=== PATIENT | male | born 1940 | race Caucasian/White ===

== ENCOUNTER 2017-07-07 19:55 | Emergency (ER) | payer MEDICARE, OTHER ==
[~2017-07-07] VITALS: Ht 182.9 cm; Wt 104.3 kg
[~2017-07-07 19:55] MED LIST: ASPI81CH; CHOL10002; COLCRYS0.6 MG PO; HYDCHL25 PO; LEVSOD150 PO; Norco 5-325 Ta1 EACH PO; OMEP20ER PO
[2017-07-07 21:02] LABS: BASOPHILS ABSOLUTE AUTO 0.03 K/mm3 (0.00-0.23); BASOPHILS PERCENT AUTO 1 % (0-2); EOSINOPHILS PERCENT AUTO 8 % (0-6); Hematocrit 36.2 % (37.0-53.0); Hemoglobin 12.3 g/dL (13.5-17.5); IMMATURE GRAN ABSOLUTE AUTO 0.02 K/mm3 (0.00-0.10); IMMATURE GRAN PERCENT AUTO 0 % (0-1); LYMPHOCYTES ABSOLUTE AUTO 0.74 K/mm3 (0.84-5.20); LYMPHOCYTES PERCENT AUTO 15 % (21-46); MONOCYTES ABSOLUTE AUTO 0.65 K/mm3 (0.16-1.47); MONOCYTES PERCENT AUTO 13 % (4-13); Mean Corpuscular HGB 31.5 pg (26.0-34.0); Mean Corpuscular Volume 93 fL (80-100); NEUTROPHILS ABSOLUTE AUTO 3.06 K/mm3 (1.96-9.15); NEUTROPHILS PERCENT AUTO 62 % (41-73); Platelet Count 191 K/mm3 (150-400); RDW Coefficient Variation 12.8 % (11.7-14.2); RDW Standard Deviation 43.7 fL (35.1-46.3)
[2017-07-07 21:10] LABS: Albumin, Blood 3.1 g/dL (3.4-5.0); Albumin/Globulin Ratio 0.8 (0.8-1.8); Bilirubin, Total 0.9 mg/dL (0.1-1.0); Bun/Creatinine Ratio 21.4 (12.0-20.0); Creatinine, Blood 1.54 mg/dL (0.60-1.20); Globulin, Blood 3.9 g/dL (2.2-4.0); Magnesium, Blood 1.7 mg/dL (1.6-2.4); Potassium, Blood 3.6 mmol/L (3.5-5.5)
[2017-07-07 21:13] LABS: Thyroid Stimulating Hormone 1.34 uIU/mL (0.360-4.800)
[2017-07-07] MEDS ORDERED: Norco 5-325 Ta1 EACH PO (23:40)
[2017-07-07] MEDS ORDERED: LIDO700A20 TOP (23:40)
== END 2017-07-08 00:10 | disposition home or self-care (01) ==
LOC: ER 19:55
PROVIDERS: Emergency Medicine
DX: S22.080S Wedge compression fracture of T11-T12 vertebra, sequela (principal); R42 Dizziness and giddiness; Z79.899 Other long term (current) drug therapy; Z79.82 Long term (current) use of aspirin; W18.30XA Fall on same level, unspecified, initial encounter
CPT/HCPCS: 70450; 71046; 72100; 80053; 81000; 83735; 84443; 85025; 93005; 93010; J7030

== ENCOUNTER → 2020-05-26 | Outpatient (CLI) | payer MEDICARE, OTHER ==
[~2020-05-26] MED LIST changes: +Aspir 8181 MG PO; +DULO30 PO; +DULO60 PO; +LIDO700A20 TOP; +VITAMIN D350000 UNIT PO
== END | disposition home or self-care (01) ==
LOC: LAB SHORT 18:59 → LAB 18:59
DX: L21.8 Other seborrheic dermatitis (principal); I89.0 Lymphedema, not elsewhere classified; R21 Rash and other nonspecific skin eruption; L08.9 Local infection of the skin and subcutaneous tissue, unspecified; D48.5 Neoplasm of uncertain behavior of skin
CPT/HCPCS: 87070; 87077; 87147; 87186; 87205

== ENCOUNTER 2020-06-28 19:31 | Emergency (ER) | payer MEDICARE, OTHER ==
[~2020-06-28] VITALS: Ht 180.3 cm; Wt 104.3 kg
== END 2020-06-28 21:32 | disposition home or self-care (01) ==
LOC: ER 19:31
DX: M25.571 Pain in right ankle and joints of right foot (principal); Z79.899 Other long term (current) drug therapy
CPT/HCPCS: 73610; 99284-25; A9270

== ENCOUNTER 2020-08-22 20:36 | Observation (INO) | payer MEDICARE, OTHER ==
[~2020-08-22] VITALS: Ht 182.9 cm; Wt 104.7 kg
[2020-08-22 21:29] LABS: BASOPHILS ABSOLUTE AUTO 0.01 K/mm3 (0.00-0.23); BASOPHILS PERCENT AUTO 0 % (0-2); EOSINOPHILS ABSOLUTE AUTO 0.02 K/mm3 (0.00-0.68); EOSINOPHILS PERCENT AUTO 0 % (0-6); Hematocrit 36.4 % (37.0-53.0); Hemoglobin 12.2 g/dL (13.5-17.5); IMMATURE GRAN ABSOLUTE AUTO 0.03 K/mm3 (0.00-0.10); IMMATURE GRAN PERCENT AUTO 0 % (0-1); LYMPHOCYTES ABSOLUTE AUTO 0.88 K/mm3 (0.84-5.20); LYMPHOCYTES PERCENT AUTO 10 % (21-46); MONOCYTES ABSOLUTE AUTO 0.79 K/mm3 (0.16-1.47); MONOCYTES PERCENT AUTO 9 % (4-13); Mean Corpuscular HGB 30.7 pg (26.0-34.0); Mean Corpuscular HGB Conc 33.5 g/dL (31.5-36.5); Mean Corpuscular Volume 92 fL (80-100); Mean Platelet Volume 8.7 fL (9.1-12.4); NEUTROPHILS ABSOLUTE AUTO 7.34 K/mm3 (1.96-9.15); NEUTROPHILS PERCENT AUTO 81 % (41-73); Platelet Count 289 K/mm3 (150-400); RDW Coefficient Variation 13.2 % (11.7-14.2); Red Blood Cell Count 3.98 M/mm3 (4.30-5.90); White Blood Cell Count 9.07 K/mm3 (4.00-11.30)
[2020-08-22 21:56] LABS: Alanine Aminotransfer (ALT/SGP 23 U/L (12-78); Albumin, Blood 3.1 g/dL (3.4-5.0); Albumin/Globulin Ratio 0.7 (0.8-1.8); Alk Phos 71 U/L (50-136); Anion Gap 6 mmol/L (6-16); Aspartate Aminotrans (AST/SGOT 14 U/L (12-37); Bilirubin, Total 0.9 mg/dL (0.1-1.0); Blood Urea Nitrogen 35 mg/dL (8-24); CO2, Blood 28 mmol/L (21-32); Calcium, Blood 9.4 mg/dL (8.5-10.1); Chloride, Blood 102 mmol/L (98-108); Creatinine, Blood 1.25 mg/dL (0.60-1.20); Globulin, Blood 4.3 g/dL (2.2-4.0); Glomerular Filtration Rate 59 (60-); Glucose, Blood 116 mg/dL (70-99); Potassium, Blood 4.3 mmol/L (3.5-5.5); Sodium, Blood 136 mmol/L (136-145); Total Protein, Blood 7.4 g/dL (6.4-8.2); Troponin I <0.015 ng/mL (0.000-0.040)
[2020-08-22 23:57] LABS: Source, Urine Clean Catch
[2020-08-23 00:04] LABS: Appearance, Urine Clear (Clear); Bilirubin, Urine Neg (Neg); Blood, Urine 2+ (Neg); Color, Urine Yellow (P-Yellow); Glucose Qualitative, Urine Neg (Neg); Ketones, Urine Neg (Neg); Leukocyte Esterase, Urine Neg (Neg); Nitrite, Urine Neg (Neg); Protein, Urine Neg (Neg); Urobilinogen, Urine NORM (Normal)
[2020-08-23 00:09] LABS: Bacteria Few /hpf; Red Blood Cells, Urine 0-2 /hpf (0-2); Squamous Epithelial Cells Few /hpf (Few); White Blood Cells, Urine 0-2 /hpf (0-5)
--- NOTE | 2020-08-23 00:45 | NUR ---
ADMISSION: PATIENT IS RECIEVED VIA STRETCHER FROM ER. REPORTING PAIN IS R LEG ONLY WITH MOVEMENT. PATIENT AND ARE ORIENTED TO ROOM AND CALL MARTIN. ZOSYN IS INFUSING.
[2020-08-23 01:10] LABS: SARS-Cov-2 (COVID-19) PCR, MMC NEGATIVE (NEGATIVE)
[2020-08-23 05:44] LABS: BASOPHILS ABSOLUTE AUTO 0.02 K/mm3 (0.00-0.23); BASOPHILS PERCENT AUTO 0 % (0-2); EOSINOPHILS ABSOLUTE AUTO 0.02 K/mm3 (0.00-0.68); EOSINOPHILS PERCENT AUTO 0 % (0-6); Hematocrit 35.4 % (37.0-53.0); IMMATURE GRAN ABSOLUTE AUTO 0.04 K/mm3 (0.00-0.10); IMMATURE GRAN PERCENT AUTO 1 % (0-1); LYMPHOCYTES ABSOLUTE AUTO 1.09 K/mm3 (0.84-5.20); LYMPHOCYTES PERCENT AUTO 13 % (21-46); MONOCYTES ABSOLUTE AUTO 0.91 K/mm3 (0.16-1.47); MONOCYTES PERCENT AUTO 11 % (4-13); Mean Corpuscular HGB Conc 33.9 g/dL (31.5-36.5); Mean Corpuscular Volume 92 fL (80-100); NEUTROPHILS ABSOLUTE AUTO 6.05 K/mm3 (1.96-9.15); NEUTROPHILS PERCENT AUTO 75 % (41-73); Platelet Count 265 K/mm3 (150-400); RDW Coefficient Variation 13.2 % (11.7-14.2); RDW Standard Deviation 43.9 fL (35.1-46.3); Red Blood Cell Count 3.87 M/mm3 (4.30-5.90); White Blood Cell Count 8.13 K/mm3 (4.00-11.30)
[2020-08-23 06:10] LABS: Albumin, Blood 2.9 g/dL (3.4-5.0); Albumin/Globulin Ratio 0.7 (0.8-1.8); Bilirubin, Total 1.1 mg/dL (0.1-1.0); Bun/Creatinine Ratio 24.1 (12.0-20.0); Calcium, Blood 9.2 mg/dL (8.5-10.1); Creatinine, Blood 1.37 mg/dL (0.60-1.20); Globulin, Blood 4.2 g/dL (2.2-4.0); Potassium, Blood 3.7 mmol/L (3.5-5.5); Total Protein, Blood 7.1 g/dL (6.4-8.2)
[2020-08-23 06:15] LABS: Thyroid Stimulating Hormone 7.15 uIU/mL (0.360-4.800)
--- NOTE | 2020-08-23 06:23 | NUR ---
SHIFT ASSESSMENT: PATIENT IS A&OX4, BED BOUND AT HOME FOR MORE TTHAN 2 WEEKS. PATIENT IS UNABLE TO GET IN OR OUT OF HIS HOME FOR ANY REASON INCLUDING MEDICAL APPOINTMENTS PER PATIENT AND . HE HAS BE NON COMPLIANT WITH HYDROCLOROTHIAZIDE AT HOME. GENERALIZED EDEMA IS PLUS 4 WITH LEFT ARM BEING THE LARGEST EXTREMITY. PATIENT HAS ONLY GROSS MOTOR FUNCTION OF LEFT HAND. IS ABLE TO FEED SELF WITH SET UP. VSS. BUMEX WAS GIVEN IN ER AND PATIENT HAS VOIDED 2650 [address] SINCE ARRIVING ON UNIT. URINE IS PALE.
--- NOTE | 2020-08-23 19:12 | NUR ---
SHIFT SUMMARY ASA DENIED PAIN WHEN LYING DOWN THIS SHIFT. GOT UP WITH MOD/MAX ASSIST TO STAND WITH PT (SEE NOTE). CONTINENT IN URINAL. COUGHING UP WHITE PHLEGM, DR RANKIN AWARE, CXR DONE. COMPLAINED OF RLE PAIN, HAD FEMUR XR SHOWING POSSIBLE OSTEONECROSIS. PER DR RANKIN, PT OK FOR NO PIV. VISITED. HAD U/S BLE. FULLY ORIENTED AND COOPERATIVE. SKIN INTACT. CALL LIGHT IN REACH, WCTM
--- NOTE | 2020-08-24 05:06 | NUR ---
SHIFT SUMMARY: PATIENT REQUESTED TYRING TO USE THE BSC FOR BM. A HEAVY ASSIST OF TWO TO STAND AND PIVOT. UNABLE TO GO ON BSC BUT WAS INC. OF A SMALL BM IN THE BED BEFOR TRANSFER. VSS, NO RESPIRATORY DISTRESS. VOIDING LARGE AMOUNTS OF PALE YELLOW URINE. PRN NASAL SPRAY WAS GIVEN FOR NASAL CONGESTION.
--- NOTE | 2020-08-24 17:54 | NUR ---
SHIFT SUMMARY PT AxOx4 WITH OCCASIONAL CONFUSION. PT CALLING OUT FREQUENTLY THIS AM, IMPROVEMENT IN USING CALL LIGHT BY AFTERNOON. PT IN ROOM FOR VISIT TODAY, AND UPDATED ON PLAN OF CARE. PT/OT WORKED WITH THE PATIENT. PT IS DECONDITIONED AND PLAN IS TO GO TO SNF FOR REHAB UPON DC. PT REPORTED PAIN IN LEG. MEDICATED PER EMAR. ALSO STARTED ON BOWEL CARE AFTER PT REPORTED NO BM x4 DAYS. PT CURRENTLY RESTING IN BED WITH CALL LIGHT IN REACH. DENIES ANY NEEDS AT THIS TIME.
[2020-08-25 05:34] LABS: BASOPHILS ABSOLUTE AUTO 0.02 K/mm3 (0.00-0.23); BASOPHILS PERCENT AUTO 0 % (0-2); EOSINOPHILS ABSOLUTE AUTO 0.16 K/mm3 (0.00-0.68); EOSINOPHILS PERCENT AUTO 3 % (0-6); Hematocrit 35.2 % (37.0-53.0); Hemoglobin 11.8 g/dL (13.5-17.5); IMMATURE GRAN ABSOLUTE AUTO 0.02 K/mm3 (0.00-0.10); IMMATURE GRAN PERCENT AUTO 0 % (0-1); LYMPHOCYTES ABSOLUTE AUTO 1.28 K/mm3 (0.84-5.20); LYMPHOCYTES PERCENT AUTO 23 % (21-46); MONOCYTES ABSOLUTE AUTO 0.58 K/mm3 (0.16-1.47); MONOCYTES PERCENT AUTO 10 % (4-13); Mean Corpuscular HGB 30.8 pg (26.0-34.0); Mean Corpuscular HGB Conc 33.5 g/dL (31.5-36.5); Mean Corpuscular Volume 92 fL (80-100); Mean Platelet Volume 8.8 fL (9.1-12.4); NEUTROPHILS ABSOLUTE AUTO 3.56 K/mm3 (1.96-9.15); NEUTROPHILS PERCENT AUTO 63 % (41-73); Platelet Count 271 K/mm3 (150-400); RDW Coefficient Variation 13.2 % (11.7-14.2); RDW Standard Deviation 44.7 fL (35.1-46.3); Red Blood Cell Count 3.83 M/mm3 (4.30-5.90); White Blood Cell Count 5.62 K/mm3 (4.00-11.30)
[2020-08-25 05:57] LABS: Albumin, Blood 2.7 g/dL (3.4-5.0); Anion Gap 4 mmol/L (6-16); Blood Urea Nitrogen 32 mg/dL (8-24); Bun/Creatinine Ratio 23.7 (12.0-20.0); CO2, Blood 31 mmol/L (21-32); Calcium, Blood 9.2 mg/dL (8.5-10.1); Chloride, Blood 99 mmol/L (98-108); Creatinine, Blood 1.35 mg/dL (0.60-1.20); Glomerular Filtration Rate 54 (60-); Glucose, Blood 107 mg/dL (70-99); Magnesium, Blood 1.8 mg/dL (1.6-2.4); Phosphorus, Blood 3.3 mg/dL (2.5-4.9); Potassium, Blood 3.7 mmol/L (3.5-5.5); Sodium, Blood 134 mmol/L (136-145)
--- NOTE | 2020-08-25 16:19 | NUR ---
SHIFT SUMMARY PT WORKED WITH PHYSICAL & OCCUPATIONAL THERAPY TODAY. PT WAS GIVEN BOWEL CARE AND PRUNE JUICE TO HELP WITH COSTIPATION. LARGE BM TODAY A RESULT. THERAPY RECCOMENDING [facility] ON DISCHARGE. THIS RN ENCOURAGED PT ABOUT THIS OPTION. PT STATES HE IS "THINKING ABOUT IT". PT REFUSED LOVENOX INJECTION AFTER BEING EDUCATED ON IT. NO OTHER ACUTE CHANGES IN ASSESSMENT AT THIS TIME. VS REVIEWED. PT BEING HELPED WITH A BEDBATH BY THE AIDE. CALL LIGHT IN REACH.
--- NOTE | 2020-08-25 23:28 | NUR ---
AWAKE AT SHIFT CHANGE, DENIED PAIN. ALERT TO QUESTIONS ASKED. ORAL ANTIBIOTIC GIVEN. CALL LIGHT IN REACH
--- NOTE | 2020-08-26 05:24 | NUR ---
WIRELESS SALES MANAGER SUMMARY HAS BEEN RESTING QUIETLY WITH EFW INTERRUPTIONS THIS SHIFT. TOLERATING MEDS WELL. INCONT/CONT UES URINAL. NO C/O VOICED. CALL LIGHT IN REACH
--- NOTE | 2020-08-26 17:37 | NUR ---
SHIFT SUMMARY PT ALERT AND ORIENTED. PT WORKED WITH PT/OT AND REHAB IS STILL THE PLAN. DENIES PAIN, SOB OR DISCOMFORT. BED IS IN THE LOWEST POSITION AND CALL LIGHT WITHIN REACH
--- NOTE | 2020-08-26 22:38 | NUR ---
ASSUMED CARE. AOX3, USES CALL LIGHT APPROPRIATLY. DENIES ANY DISCOMFORT. LUNG SOUNDS ARE CLEAR DIMINISHED IN BASES. HR NORMAL S1 S2 SOUNDS. LYMPHEDEMA TO RUE. BILATERAL LOWER EDEMA +1 RIGHT GREATER THAN LEFT. 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 URINATING 100ML AT A TIME WITH URINAL. WOUND IN LEFT ARMPIT, SLOUGH NOTED, SCANT DRAINAGE. DENIES PAIN. WOUND CULTURE PENDING. OPEN TO AIR. MEDS GIVEN. DENIES ANY OTHER NEEDS AT THIS TIME. CALL LIGHT IS IN REACH.
--- NOTE | 2020-08-27 05:12 | NUR ---
SHIFT SUMMARY: AOX3, WC BOUND, ABLE TO MOVE A LITTLE IN BED. ENCOURAGED REPOSITIONING, LIKES TO STAY IN SITTING POSITION DOES NOT LIKE TO LAY BACK IN BED. KEEPS HEAD COVERED WITH BLANKET MOST OF THE TIME. DENIES ANY PAIN OR DISCOMFORT. LUE LYMPHEDMEA, TALKED HIM INTO HAVING IT UP ON A PILLOW. DECREASE IN HAND MOBILITY AND LUE MOBILITY. BILATERL LE EDEMA. RLE CELLULITIS IMPROVING, DOES GET PAIN OCCATIONALLY IN THAT LEG. SLIGHT WARMTH TO TOUCH. VS WITH MILD TACHYCARDIA IN 110'S THEN BACK TO NORMAL. BP WNL. URINATES SMALL AMOUNTS FREQUENTLY 100ML AT A TIME, CLEAR YELLOW URINE. NO BM TONIGHT. WILL CONTINUE TO MONITOR. CALL LIGHT IS IN REACH.
--- NOTE | 2020-08-27 17:46 | NUR ---
SHIFT SUMMARY PT ALERT AND INTERMITTENT CONFUSION; DENIES PAIN AND 2 MAX ASSIST. PT ON RA AND NO TELE. PT VSS. DENIES ANY CP OR DISCOMFORT. AWAITS SNF. BED ALARM IS ON AND CALL LIGHT WITHIN REACH
--- NOTE | 2020-08-27 22:02 | NUR ---
ASSUMED CARE. AOX3, NO CHANGES FROM YESTERDAY. STILL SITTING IN BED WITH COVERS OVER HIS HEAD. DENIES ANY PAIN OR DISCOMFORT, BUT WOULD LIKE A PAIN PILL FOR BEDTIME TO HELP WITH SLEEP. NO CHANGED TO LUE. DECREASE IN REDNESS TO LLE, PINK, NORMAL TEMP. WORKED WITH PT/OT TODAY. VS WNL, AFEBRILE. MEDS GIVEN. WILL CONTINUE TO MONITOR AND TREAT. CALL LIGHT IS IN REACH.
[2020-08-28 05:02] LABS: Hemoglobin 10.9 g/dL (13.5-17.5); Mean Corpuscular HGB 30.4 pg (26.0-34.0); Mean Corpuscular Volume 92 fL (80-100); Mean Platelet Volume 8.7 fL (9.1-12.4); Platelet Count 245 K/mm3 (150-400); Red Blood Cell Count 3.59 M/mm3 (4.30-5.90)
--- NOTE | 2020-08-28 05:22 | NUR ---
SHIFT SUMMARY; NO ACUTE CHANGES OR CONCERNS. RLE PAIN MINIMAL, NORMAL SKIN TEMP, PINK BUT IMPROVING. REFUSES TO MOVE POSITIONES ALL NIGHT, WILL NOT LAY DOWN LIKES TO BE IN SITTING POSITION. DISCUSSED RISK OF SKIN BREAKDOWN, RESPONSE WAS "I WON'T GET SKIN BREAKDOWN". VS WNL, AFEBRILE. NO GROWTH ON WOUND CULTURE. WOUND OPEN WITH YELLOW SLOUGH TO WOUND BED. NO PAIN. USES CALL LIGHT APPROPRIATLY.
[2020-08-28 05:53] LABS: Bun/Creatinine Ratio 25.4 (12.0-20.0); Calcium, Blood 9.1 mg/dL (8.5-10.1); Creatinine, Blood 1.42 mg/dL (0.60-1.20); Potassium, Blood 3.9 mmol/L (3.5-5.5)
[2020-08-28 12:25] LABS: SARS-Cov-2 (COVID-19) PCR, MMC NEGATIVE (NEGATIVE)
--- NOTE | 2020-08-28 15:51 | NUR ---
DISCHARGE NOTE PATIENT DISCHARGED TO [facility]. PATIENT ALERT AND ORIENTED THIS SHIFT. PATIENT WORKED WITH PT/OT PRIOR TO DISCHARGE. PATIENT'S SPOUSE IN THE ROOM PRIOR TO DISCHARGE. PATIENT TRANSPORTED BY [facility]. PATIENT BELONGINGS WITH PATIENT UPON DISCHARGE.
== END 2020-08-28 15:40 ==
LOC: ER 20:36 → MEDS 20:37
PROVIDERS: Emergency Medicine; Internal Medicine; ADMIT Internal Medicine
DX: M16.11 Unilateral primary osteoarthritis, right hip (principal); M87.9 Osteonecrosis, unspecified; J18.9 Pneumonia, unspecified organism; I89.0 Lymphedema, not elsewhere classified; E03.9 Hypothyroidism, unspecified; I12.9 Hypertensive chronic kidney disease with stage 1 through stage 4 chronic kidney disease, or unspecified chronic kidney disease; N18.30 Chronic kidney disease, stage 3 unspecified; E87.1 Hypo-osmolality and hyponatremia; L89.151 Pressure ulcer of sacral region, stage 1; R62.7 Adult failure to thrive; E86.0 Dehydration; J32.9 Chronic sinusitis, unspecified; K21.9 Gastro-esophageal reflux disease without esophagitis; L02.411 Cutaneous abscess of right axilla; Z85.71 Personal history of Hodgkin lymphoma; Z20.822 Contact with and (suspected) exposure to COVID-19; Z92.3 Personal history of irradiation; Z79.01 Long term (current) use of anticoagulants; Z74.09 Other reduced mobility; Z91.81 History of falling; Z68.31 Body mass index [BMI] 31.0-31.9, adult
CPT/HCPCS: 36415; 71045; 73552; 80048; 80053; 80069; 81001; 83605; 83735; 83880; 84145; 84439; 84443; 84484; 85025; 85027; 87040; 87070; 87205; 93005; 93010; 93970; 96365; 96372; 97110; 97110-CO; 97116; 97161; 97164; 97166; 97530; 97530-CO; 97535; 97535-CO; 99285-25; A9270; G0378; J1650; J2543; J7030; U0004

== ENCOUNTER 2020-10-09 19:08 | Observation (INO) | payer MEDICARE, OTHER ==
[~2020-10-09] VITALS: Ht 182.9 cm; Wt 106.3 kg
[2020-10-09 19:40] LABS: BASOPHILS ABSOLUTE AUTO 0.02 K/mm3 (0.00-0.23); BASOPHILS PERCENT AUTO 0 % (0-2); EOSINOPHILS ABSOLUTE AUTO 0.11 K/mm3 (0.00-0.68); EOSINOPHILS PERCENT AUTO 1 % (0-6); Hematocrit 34.9 % (37.0-53.0); Hemoglobin 11.6 g/dL (13.5-17.5); IMMATURE GRAN ABSOLUTE AUTO 0.04 K/mm3 (0.00-0.10); IMMATURE GRAN PERCENT AUTO 0 % (0-1); LYMPHOCYTES ABSOLUTE AUTO 0.97 K/mm3 (0.84-5.20); LYMPHOCYTES PERCENT AUTO 11 % (21-46); MONOCYTES ABSOLUTE AUTO 0.71 K/mm3 (0.16-1.47); MONOCYTES PERCENT AUTO 8 % (4-13); Mean Corpuscular HGB 29.7 pg (26.0-34.0); Mean Corpuscular HGB Conc 33.2 g/dL (31.5-36.5); Mean Corpuscular Volume 90 fL (80-100); Mean Platelet Volume 8.2 fL (9.1-12.4); NEUTROPHILS ABSOLUTE AUTO 7.08 K/mm3 (1.96-9.15); NEUTROPHILS PERCENT AUTO 79 % (41-73); Platelet Count 288 K/mm3 (150-400); RDW Coefficient Variation 13.1 % (11.7-14.2); RDW Standard Deviation 42.7 fL (35.1-46.3); White Blood Cell Count 8.93 K/mm3 (4.00-11.30)
[2020-10-09 19:47] LABS: Source, Urine Clean Catch
[2020-10-09 19:53] LABS: Appearance, Urine Clear (Clear); Bilirubin, Urine Neg (Neg); Blood, Urine 2+ (Neg); Color, Urine Yellow (P-Yellow); Glucose Qualitative, Urine Neg (Neg); Ketones, Urine Neg (Neg); Leukocyte Esterase, Urine Neg (Neg); Nitrite, Urine Neg (Neg); Protein, Urine Neg (Neg); Specific Gravity, Urine 1.015 (1.003-1.022); Urobilinogen, Urine NORM (Normal)
[2020-10-09 19:58] LABS: Alanine Aminotransfer (ALT/SGP 24 U/L (12-78); Albumin, Blood 2.8 g/dL (3.4-5.0); Albumin/Globulin Ratio 0.6 (0.8-1.8); Alk Phos 83 U/L (50-136); Anion Gap 4 mmol/L (6-16); Aspartate Aminotrans (AST/SGOT 22 U/L (12-37); Bilirubin, Total 0.7 mg/dL (0.1-1.0); Blood Urea Nitrogen 25 mg/dL (8-24); Bun/Creatinine Ratio 22.9 (12.0-20.0); CO2, Blood 29 mmol/L (21-32); Calcium, Blood 9.3 mg/dL (8.5-10.1); Chloride, Blood 103 mmol/L (98-108); Creatinine, Blood 1.09 mg/dL (0.60-1.20); Globulin, Blood 4.4 g/dL (2.2-4.0); Glomerular Filtration Rate >60 (60-); Glucose, Blood 105 mg/dL (70-99); Potassium, Blood 4.4 mmol/L (3.5-5.5); Sodium, Blood 136 mmol/L (136-145); Total Protein, Blood 7.2 g/dL (6.4-8.2)
[2020-10-09 20:01] LABS: Bacteria Few /hpf; Squamous Epithelial Cells Not Seen /hpf (Few); White Blood Cells, Urine Rare /hpf (0-5)
--- NOTE | 2020-10-10 18:37 | NUR ---
PT ARRIVED TO ROOM VIA GURNEY, UNABLE TO STAND, SLIDER SHEET USED TO TRANSFER PT TO BED, VITAL SIGNS AND WEIGHT OBTAINED, BED IN LOWEST POSITION AND CALL MARTIN IN REACH, WILL CONTINUE TO MONITOR AND REPORT TO ONCOMING RN
--- NOTE | 2020-10-11 04:21 | NUR ---
SHIFT SUMMARY: PT STATES HE HAD A TWO BOWEL MOVEMENTS YESTERDAY AND DID NOT NEED ANY BOWEL CARE. RESTED WELL DURING SHIFT. ON RA. 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 DECLINED ELEVATING AFFECTED ARM ON PILLOW, STATES HE DOES THIS AT HOME. PT WILL BE EVALUATED BY PT FOR PLACEMENT. PLANS TO D/C TO [facility] MONDAY. NO ACUTE CHANGES. WILL CONTINUE TO PROVIDE CARE UNTIL SHIFT REPORT.
--- NOTE | 2020-10-11 18:30 | NUR ---
NO ACUTE CHANGES THIS SHIFT, WILL CONTINUE TO MONITOR AND REPORT TO ONCOMING RN
--- NOTE | 2020-10-11 19:26 | NUR ---
RECEIVED REPORT FROM GABRIEL DE LA VEGA. PT LYING IN BED WITH EYES CLOSED, EASILY AWAKENS. RESP E/U ON RA. DOES NOT REMEMBER ME HIS NURSE FROM THE NIGHT BEFORE. WILL PROVIDE CARE T/O SHIFT. CALL LT IN REACH.
--- NOTE | 2020-10-12 04:41 | NUR ---
SHIFT SUMMARY: NO ACUTE CHANGES. PT RESTED WELL T/O SHIFT. ON RA. NO COMPLAINTS. FORGETFUL AT TIMES. NO CHANGE TO BUE CHRONIC LYMPHEDEMA. ELEVATED RIGHT LEG ON PILLOW FOR COMFORT. USES URINAL AT BEDSIDE. PLAN IS TO DISCHARGE TO SNF POSSIBLY TODAY. WILL CONTINUE TO PROVIDE CARE UNTIL SHIFT REPORT.
[2020-10-12 12:07] LABS: SARS-Cov-2 (COVID-19) PCR, MMC NEGATIVE (NEGATIVE)
== END 2020-10-12 14:27 ==
LOC: ER 19:08 → ERHOLD 19:09 → ER 10-10 16:11 → ERHOLD 10-10 16:12 → ER 10-10 16:12 → MEDS 10-10 16:12 → ERHOLD 10-10 17:30 → MEDS 10-10 18:29 → ERHOLD 10-10 18:29 → ENPENDDIS 10-12 12:19 → MEDS 10-12 14:27
PROVIDERS: Emergency Medicine; Internal Medicine; ADMIT Internal Medicine
DX: R53.81 Other malaise (principal); Z74.01 Bed confinement status; K59.00 Constipation, unspecified; E03.9 Hypothyroidism, unspecified; I10 Essential (primary) hypertension; Z85.71 Personal history of Hodgkin lymphoma; K21.9 Gastro-esophageal reflux disease without esophagitis; Z51.5 Encounter for palliative care; Z20.822 Contact with and (suspected) exposure to COVID-19
CPT/HCPCS: 36415; 74022; 80053; 81001; 83605; 85025; 87040; 93005; 93010; 97110; 97162; 97530; 99285-25; A9270; G0378; J1650; U0004

== ENCOUNTER → 2021-03-02 | Outpatient (CLI) | payer MEDICARE, OTHER ==
[2021-03-02 08:06] LABS: BASOPHILS ABSOLUTE AUTO 0.02 K/mm3 (0.00-0.23); BASOPHILS PERCENT AUTO 0 % (0-2); EOSINOPHILS ABSOLUTE AUTO 0.19 K/mm3 (0.00-0.68); EOSINOPHILS PERCENT AUTO 3 % (0-6); Hemoglobin 11.8 g/dL (13.5-17.5); IMMATURE GRAN ABSOLUTE AUTO 0.02 K/mm3 (0.00-0.10); IMMATURE GRAN PERCENT AUTO 0 % (0-1); LYMPHOCYTES ABSOLUTE AUTO 1.72 K/mm3 (0.84-5.20); LYMPHOCYTES PERCENT AUTO 24 % (21-46); MONOCYTES ABSOLUTE AUTO 0.58 K/mm3 (0.16-1.47); MONOCYTES PERCENT AUTO 8 % (4-13); Mean Corpuscular HGB 28.2 pg (26.0-34.0); Mean Corpuscular HGB Conc 32.8 g/dL (31.5-36.5); Mean Corpuscular Volume 86 fL (80-100); Mean Platelet Volume 8.3 fL (9.1-12.4); NEUTROPHILS ABSOLUTE AUTO 4.73 K/mm3 (1.96-9.15); NEUTROPHILS PERCENT AUTO 65 % (41-73); Platelet Count 274 K/mm3 (150-400); RDW Coefficient Variation 14.7 % (11.7-14.2); RDW Standard Deviation 45.7 fL (35.1-46.3); Red Blood Cell Count 4.18 M/mm3 (4.30-5.90); White Blood Cell Count 7.26 K/mm3 (4.00-11.30)
== END | disposition home or self-care (01) ==
LOC: LAB RH 07:59 → EDSTATUS 14:28
PROVIDERS: Internal Medicine
DX: I89.0 Lymphedema, not elsewhere classified (principal); M62.81 Muscle weakness (generalized); L03.90 Cellulitis, unspecified; Z85.71 Personal history of Hodgkin lymphoma
CPT/HCPCS: 84145; 85025

== ENCOUNTER → 2021-06-29 | Outpatient (CLI) | payer MEDICARE, OTHER ==
[~2021-06-29] MED LIST changes: +FUROSEMIDE40 MG PO; +Ketoconazole15 GM TOP; +Potassium Chlo20 ME1 PO; +SULFAMETHOXAZO1 EAC1 PO; +Synthroid/Levo0.2 MG; +TRIDERM28.4 GM TOP; +[UNRECOGNIZED DRUG - CODE] PO
[2021-06-29 19:28] LABS: Appearance, Urine Clear (Clear); Bilirubin, Urine Neg (Neg); Blood, Urine 2+ (Neg); Glucose Qualitative, Urine Neg (Neg); Ketones, Urine Neg (Neg); Leukocyte Esterase, Urine Neg (Neg); Nitrite, Urine Neg (Neg); Protein, Urine Neg (Neg); Urobilinogen, Urine NORM (Normal)
[2021-06-29 19:53] LABS: Color, Urine Pale Yellow (P-Yellow)
[2021-06-29 19:54] LABS: Bacteria Few /hpf; Red Blood Cells, Urine 0-2 /hpf (0-2); Squamous Epithelial Cells Rare /hpf (Few); White Blood Cells, Urine 0-2 /hpf (0-5)
== END ==
LOC: EDSTATUS 11:40 → LAB RH 17:26
PROVIDERS: Internal Medicine
DX: N39.0 Urinary tract infection, site not specified (principal)
CPT/HCPCS: 81001

== ENCOUNTER → 2021-11-03 | Outpatient (CLI) | payer MEDICARE, OTHER ==
[~2021-11-03] MED LIST changes: -FUROSEMIDE40 MG PO; -Ketoconazole15 GM TOP; -Potassium Chlo20 ME1 PO; -SULFAMETHOXAZO1 EAC1 PO; -Synthroid/Levo0.2 MG; -TRIDERM28.4 GM TOP; -[UNRECOGNIZED DRUG - CODE] PO
== END | disposition home or self-care (01) ==
LOC: LAB SHORT 16:00
DX: L08.9 Local infection of the skin and subcutaneous tissue, unspecified (principal)
CPT/HCPCS: 87070; 87077; 87147; 87186; 87205